=== PATIENT | male | born 1950 | race Caucasian/White ===

== ENCOUNTER 2017-11-22 23:47 | Emergency (ER) | payer BC ==
--- NOTE | 2017-11-23 00:21 | EDM.PDOC ---
ED HPI GENERAL MEDICAL PROBLEM - General Chief Complaint: ENT Problem Stated Complaint: TOOTH PAIN Time Seen by Provider: 11/23/17 00:19 Source of Information: Reports: Patient History Limitations: Reports: No Limitations - History of Present Illness INITIAL COMMENTS - FREE TEXT/NARRATIVE: 67-year-old male presents to the ED for evaluation of dental pain. Patient states that he's been suffering with severe pain from right lower canine tooth for the last 4 days. He just got home from the [place]. States she's been using clothes Tylenol for pain relief without much relief. Patient Cannot Take NSAIDs As He Said Previous Subdural Hemorrhage Spontaneously Believed to Be Due To Aspirin Use. Pain Is Constant and Throbbing in Interfering with His Ability to Sleep. No Fever or Chills. Onset: Gradual Onset Date: 11/19/17 Duration: Day(s): Location: Reports: Face (4 days dental pain right lower canine tooth.) Quality: Reports: Ache, Throbbing Severity: Severe (Current pain 9 out of 10) Improves with: Reports: Medication (Close and Tylenol have been helping somewhat ) Worsens with: Reports: None Context: Denies: Activity, Exercise, Lifting, Sick Contact, Trauma, Other Associated Symptoms: Reports: Headaches, Malaise. Denies: No Other Symptoms, Confusion, Chest Pain, Cough, cough w sputum, Diaphoresis, Fever/Chills, Loss of Appetite (Gets a lot of headaches.), Nausea/Vomiting, Rash, Seizure, Shortness of Breath, Syncope, Weakness (Not sleeping the last 2 nights) Treatments BACCARAT MANAGER: Reports: Acetaminophen, Other (see below) Right Tooth/Teeth Pain Score (Numeric/FACES): 8 - Related Data Allergies Allergy/AdvReac Type Severity Reaction Status Date / Time No Known Allergies Allergy Verified 11/23/17 00:14 Home Meds: Home Meds Amoxicillin/Potassium Clav [Augmentin 500-125 Tablet] 1 each PO BID #16 tablet 11/23/17 [Rx] Carvedilol 6.25 mg PO DAILY 11/23/17 [History] Lisinopril 10 mg PO DAILY 11/23/17 [History] amLODIPine Besylate [Amlodipine Besylate] 10 mg PO DAILY 11/23/17 [History] Past Medical History Cardiovascular History: Reports: Hypertension (Hypertension for which has been controlled for the most part with medications) Genitourinary History: Reports: BPH, Other (See Below) (Nocturia usually 3) Musculoskeletal History: Reports: Osteoarthritis (Involving his neck low back knees and hips at times) Neurological History: Reports: Other (See Below) (Developed a spontaneous subdural hematoma requiring emergency surgery in [facility]. At the time he was taking high-dose aspirin tablets which were [id number] for headache relief. Each tablet contained 800 mg of aspirin and he is taking 2 at a time. They also contain a good deal of caffeine. 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 Denies: Fever, Chills HEENT: Reports: Dental Pain (See history of present illness), Hearing Loss ( Bilaterally with severe tinnitus.). Denies: Ear Pain, Eye Discharge, Glasses, Nosebleed, Nose Pain, Rhinitis, Sinus Problem, Throat Pain, Throat Swelling Respiratory: Reports: No Symptoms Cardiovascular: Reports: Blood Pressure Problem (Usually well-controlled with medication although at time of presentation was quite high tonight at 190/97. This is felt primarily to be due to pain and anxiety) Endocrine: Reports: Fatigue GI/Abdominal: Reports: No Symptoms : Reports: Frequency, Other Musculoskeletal: Reports: Neck Pain ( sets lower back at times), Joint Pain ( Nocturia usually 3) Skin: Reports: No Symptoms Neurological: Reports: Headache Psychiatric: Reports: No Symptoms Hematologic/Lymphatic: Reports: No Symptoms Immunologic: Reports: No Symptoms ED EXAM, ENT - Physical Exam Exam: See Below Exam Limited By: Other (Prefers to keep his Over top of his eyes as the light is bothering his eyes.) General Appearance: Alert, WD/WN, Mild Distress Eye Exam: Bilateral Eye: Normal Inspection Ears: Normal TMs Mouth/Throat: Dental Pain (Pain appears to be coming from a DK 8 right lower canine tooth. He states she's had dental work done on this past. It appears that is been pared down in preparation for a crown which she states he never got. The surrounding gingiva is swollen and erythematous without abscess it is very tender to touch.) Head: Atraumatic, Normocephalic Neck: Normal Inspection, Supple, Non-Tender, Full Range of Motion. No: Lymphadenopathy (L), Lymphadenopathy (R) Respiratory/Chest: No Respiratory Distress, Lungs Clear, Normal Breath Sounds, No Accessory Muscle Use Cardiovascular: Normal Peripheral Pulses, Regular Rate, Rhythm, No Edema, No Gallop, No Murmur, No Rub Course - Vital Signs Last Recorded V/S: Last Vital Signs Temp 36.3 C 11/23/17 00:11 Pulse 61 11/23/17 00:11 Resp 16 11/23/17 00:11 BP 190/97 H 11/23/17 00:11 Pulse Ox 100 11/23/17 00:11 - Orders/Labs/Meds Meds: Medications Discontinued Medications Generic Name Dose Route Start Last Admin Trade Name Freq PRN Reason Stop Dose Admin Amoxicillin/Clavulanate Potassium 1 tab 11/23/17 00:58 11/23/17 01:18 Augmentin 500 Mg\125 Mg PO 11/23/17 00:59 1 tab ONETIME ONE Administration Meperidine HCl 50 mg 11/23/17 00:58 11/23/17 01:12 Demerol IM 11/23/17 00:59 Not Given ONETIME ONE Meperidine HCl 50 mg 11/23/17 01:09 11/23/17 01:18 Meperidine IM 11/23/17 01:10 50 mg ONETIME ONE Administration Promethazine HCl 12.5 mg 11/23/17 00:58 11/23/17 01:18 Phenergan IM 11/23/17 00:59 12.5 mg ONETIME ONE Administration - Radiology Interpretation Free Text/Narrative:: 67-year-old male presents to the ED with severe dental pain right lower canine tooth which is been bothering him for the last 4 days. He states the risperidone and by dentist in the past and is never had any problems up until the last 4 days. Clinically he has a dental abscess at the root of this tooth. He taken a half a Percocet tablet at home as he is somewhat very sensitive to medications. He got no relief with this. Decision made therefore to give him Demerol 50 mg IM with 12.5 mg of Phenergan IM.. Initial dose of Augmentin 500 mg was given in the ED as well. He has enough to Percocet tablets to utilize at home as needed. He is advised not to take Motrin due to previous spontaneous subdural hemorrhage from aspirin use. He will hopefully seek dentist tomorrow to have the tooth removed. Wrote prescription written for amoxicillin 500 mg twice a day for the next 8 days. Departure - Departure Time of Disposition: 01:20 Disposition: Home, Self-Care 01 Condition: Fair Clinical Impression: Dental abscess - Discharge Information Prescriptions: Amoxicillin/Potassium Clav [Augmentin 500-125 Tablet] 1 each PO BID #16 tablet Instructions: Dental Abscess, [id number] Referrals: Ashley Wilkinson MD [Primary Care Provider] - Forms: ED Department Discharge Additional Instructions: Evaluation in the emergency him today in regards to increasing dental pain from left lower canine tooth which is badly decayed. Suspect dental abscess at the root of the tooth. Treatment is antibiotic Augmentin 500 mg twice daily for the next 8 days to clear up infection. First tablet will be provided to the emergency department tonight. You're given an IM injection of Demerol 50 mg with Phenergan 12.5 mg to alleviate pain. Of note this will make you sleepy and hopefully sleep the rest of the night with control of your pain. The pain returns it's okay to use a full tablet of Percocet. Most patients take one or 2 every 4-6 hours for pain control until the antibiotic begins to work which is usually 2 days. Of course follow-up with dentist as soon as able to have the tooth removed which will solve the problem.
[2017-11-23] MEDS ORDERED: Promethazine 25 MG/ML SDV IM ONE (00:58)
[2017-11-23] MEDS ORDERED: Meperidine PF 50 MG/ML Syringe IM ONE (00:58)
[2017-11-23] MEDS ORDERED: Amoxicillin/Clavulanate K 500-125 MG Tab PO ONE (00:58)
[2017-11-23] MEDS ORDERED: Meperidine 50 MG/ML Vial IM ONE (01:09)
== END 2017-11-23 01:22 | disposition home or self-care (01) ==
LOC: JD.ED 23:47
DX: K04.7 Periapical abscess without sinus (principal); I10 Essential (primary) hypertension; M19.90 Unspecified osteoarthritis, unspecified site; Z79.899 Other long term (current) drug therapy
CPT/HCPCS: 96372; 99283; A9270; J2175; J2550

== ENCOUNTER 2018-01-24 13:54 | Inpatient (IN) | payer BC ==
--- NOTE | 2018-01-24 14:07 | EDM.PDOC ---
ED HPI GENERAL MEDICAL PROBLEM - General Chief Complaint: Neurological Problem Stated Complaint: COUGHING DIZZY Time Seen by Provider: 01/24/18 13:57 Source of Information: Reports: Patient History Limitations: Reports: No Limitations - History of Present Illness INITIAL COMMENTS - FREE TEXT/NARRATIVE: 67-year-old male presents the ED with sudden onset of severe vertigo associated with nausea and vomiting within the last hour. He was in [employer] grocery shopping with his when symptoms developed. He had a headache this morning when he woke up he states is more like a mild tension headache. He did go out and mow the grass. States took 2 Tylenol this morning for the headache relief and it seemed to help. He has chronic tinnitus particular in his left ear. Can' t report that is any worse than normal. He is losing his hearing in his left ear. Presents the ED after vomiting 3 both breakfast and dinner came back up without blood. This is associated with severe vertigo. At this time is no worse than it was this morning. He appreciated some neck stiffness this morning when he awoke. He has a history of previous spontaneous subdural hematoma. Currently on no blood thinners. He said mild vertigo in the past but never to this severity. His have chronic hypertension. Onset: Today Onset Date: 01/24/18 Onset Time: 13:00 Duration: Minutes: Location: Reports: Other (Spontaneous nausea vomiting and vertigo. Needed help to walk.) Quality: Reports: Other Severity: Severe (Severe vertigo) Improves with: Reports: Rest (Still has symptoms of mild spinning even at rest.) Worsens with: Reports: Movement Context: Denies: Activity, Exercise, Lifting, Sick Contact, Trauma, Other Associated Symptoms: Reports: Diaphoresis, Malaise, Nausea/Vomiting ( Intractable since onset of vertigo an hour and a half ago). 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: Reports: Acetaminophen (Took 2 tablets of acetaminophen this morning for headache relief.) - Related Data Allergies Allergy/AdvReac Type Severity Reaction Status Date / Time No Known Allergies Allergy Verified 11/23/17 00:14 Home Meds: Home Meds Carvedilol 6.25 mg PO DAILY 11/23/17 [History] Lisinopril 40 mg PO DAILY 11/23/17 [History] amLODIPine Besylate [Amlodipine Besylate] 10 mg PO DAILY 11/23/17 [History] Acetaminophen [Tylenol] 650 mg PO ASDIRECTED 01/24/18 [History] Cholecalciferol (Vitamin D3) [Vitamin D3] 1,000 unit PO DAILY 01/24/18 [History] Magnesium 250 mg PO DAILY 01/24/18 [History] Melatonin 3 mg PO BEDTIME 01/24/18 [History] Multivit-Min/FA/Lycopene/Lut [Centrum Silver Tablet] 1 tab PO DAILY 01/24/18 [ History] Past Medical History Cardiovascular History: Reports: Hypertension (Hypertension for which has been controlled for the most part with medications) Genitourinary History: Reports: BPH, Other (See Below) (Nocturia usually 3) Musculoskeletal History: Reports: Osteoarthritis (Involving his neck low back knees and hips at times) Neurological History: Reports: Other (See Below) (Developed a spontaneous subdural hematoma requiring emergency surgery in [facility]. At the time he was taking high-dose aspirin tablets which were [id number] for headache relief. Each tablet contained 800 mg of aspirin and he is taking 2 at a time. They also contain a good deal of caffeine. 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 Denies: Fever, Chills HEENT: Reports: Glasses, Hearing Loss, Vertigo (With tinnitus particularly left ear.) Respiratory: Reports: Shortness of Breath. Denies: Wheezing, Pleuritic Chest Pain (On exertion), Cough, Sputum Cardiovascular: Reports: Blood Pressure Problem, Dyspnea on Exertion. Denies: Chest Pain, Claudication, Edema, Lightheadedness (Usually well-controlled with medication), Orthopnea Endocrine: Reports: No Symptoms GI/Abdominal: Reports: Nausea, Vomiting : Reports: Frequency, Other Musculoskeletal: Reports: Back Pain (Nocturia 3), Joint Pain Skin: Reports: Diaphoresis (Presents severely diaphoretic clothing is soaked) Neurological: Reports: Dizziness, Difficulty Walking (Severe vertigo. Required help with walking with his . Use the shopping cart to get out of [employer] to help maintain his balance.), Gait Disturbance. Denies: Numbness, Pre- Existing Deficit, Seizure, Syncope, Tingling Psychiatric: Reports: No Symptoms Hematologic/Lymphatic: Reports: No Symptoms (Sudden onset with a vertical) Immunologic: Reports: No Symptoms ED EXAM, DIZZINESS - Physical Exam Exam: See Below Exam Limited By: No Limitations General Appearance: Alert, Moderate Distress (Intermittent nausea and vomiting.) Eye Exam: Left Eye: Nystagmus (Severe rotational lateral nystagmus on left lateral gaze.), Bilateral Eye: PERRL Nystagmus: worsens with head to R, reproducible, constant Ears: Normal TMs (There is no wax against his eardrums.) Throat/Mouth: Normal Inspection, Normal Lips, Normal Teeth Head Exam: Atraumatic, Normocephalic Neck: Normal Inspection, Supple, Non-Tender, Full Range of Motion. No: Carotid Bruit, Lymphadenopathy (L), Lymphadenopathy (R) Respiratory/Chest: No Respiratory Distress, Lungs Clear, Normal Breath Sounds, Decreased Breath Sounds Cardiovascular: Regular Rate, Rhythm, No Edema, No Gallop, No Murmur, No Rub GI/Abdominal: Normal Bowel Sounds, Soft, Non-Tender, No Organomegaly, No Abnormal Bruit, No Mass, Pelvis Stable (Mildly obese), Other Neurological: Alert, Normal Mood/Affect, Normal Dorsiflexion, CN II-XII Intact, Normal Plantar Flexion, No Motor/Sensory Deficits, Oriented x 3, Other ( Babinski is downgoing. No pronator drift. Rapid alternating movements normal). No: Normal Gait, Normal Reflexes, Abnormal Finger to Nose DTR: 0: Achilles (R), Achilles (L), 1+: Patella (R), Patella (L) Extremities: Normal Inspection, Normal Range of Motion, Non-Tender, No Pedal Edema Psychiatric: Normal Affect Skin Exam: Warm, Cool (Clothing is soaked. Cool and clammy and clammy), Diaphoretic Course - Vital Signs Last Recorded V/S: Last Vital Signs Temp 35.6 C 01/24/18 13:57 Pulse 85 01/24/18 13:57 Resp 14 01/24/18 13:57 BP 165/107 H 01/24/18 13:57 Pulse Ox 97 01/24/18 13:57 - Orders/Labs/Meds Orders: Active Orders 24 hr Category Date Time Status EKG Documentation Completion [RC] STAT Care 01/24/18 16:27 Active Chest 1V Frontal [CR] Stat Exams 01/24/18 16:28 Taken Head wo Cont [CT] Stat Exams 01/24/18 14:07 Taken Lactated Ringers [Ringers, Lactated] 1,000 ml Med 01/24/18 17:00 Active IV ASDIRECTED Medication Orders Lactated Ringer's (Ringers, Lactated) 1,000 mls @ 150 mls/hr IV ASDIRECTED THOMAS Last Admin: 01/24/18 17:16 Dose: 150 mls/hr Labs: Laboratory Tests 01/24/18 01/24/18 01/24/18 Range/Units 14:00 14:00 14:00 WBC 8.77 (4.23-9.07) K/mm3 RBC 5.34 (4.63-6.08) M/mm3 Hgb 16.1 (13.7-17.5) gm/L Hct 46.1 (40.1-51.0) % MCV 86.3 (79.0-92.2) fl MCH 30.1 (25.7-32.2) pg MCHC 34.9 (32.2-35.5) g/dl RDW Std Deviation 42.7 (35.1-43.9) fL Plt Count 270 (163-337) K/mm3 MPV 9.2 L (9.4-12.3) fl Neutrophils % (Manual) 45 (40-60) % Band Neutrophils % 0 (0-10) % Lymphocytes % (Manual) 44 H (20-40) % Atypical Lymphs % 0 % Monocytes % (Manual) 5 (2-10) % Eosinophils % (Manual) 4 (0.8-7.0) % Basophils % (Manual) 2 H (0.2-1.2) Platelet Estimate Adequate Plt Morphology Comment Normal RBC Morph Comment Normal PT 10.2 (9.5-12.1) SECONDS INR 0.93 APTT 24 (24-31) SECONDS Sodium 142 (136-145) mEq/L Potassium 3.0 L (3.5-5.1) mEq/L Chloride 105 (98-107) mEq/L Carbon Dioxide 23 (21-32) mEq/L Anion Gap 17.0 H (5-15) BUN 18 (7-18) mg/dL Creatinine 1.7 H (0.7-1.3) mg/dL Est Cr Clr Drug Dosing TNP Estimated GFR (MDRD) 40 (>60) mL/min BUN/Creatinine Ratio 10.6 L (14-18) Glucose 120 H (80-115) mg/dL Calcium 9.6 (8.5-10.1) mg/dL Magnesium 2.2 (1.8-2.4) mg/dl Total Bilirubin 0.5 (0.2-1.0) mg/dL AST 15 (15-37) U/L ALT 33 (16-63) U/L Alkaline Phosphatase 72 (46-116) U/L Total Protein 8.1 (6.4-8.2) g/dl Albumin 4.0 (3.4-5.0) g/dl Globulin 4.1 gm/dL Albumin/Globulin Ratio 1.0 (1-2) Ethyl Alcohol (0.00) gm% //18 Range/Units 14:00 WBC (4.23-9.07) K/mm3 RBC (4.63-6.08) M/mm3 Hgb (13.7-17.5) gm/L Hct (40.1-51.0) % MCV (79.0-92.2) fl MCH (25.7-32.2) pg MCHC (32.2-35.5) g/dl RDW Std Deviation (35.1-43.9) fL Plt Count (163-337) K/mm3 MPV (9.4-12.3) fl Neutrophils % (Manual) (40-60) % Band Neutrophils % (0-10) % Lymphocytes % (Manual) (20-40) % Atypical Lymphs % % Monocytes % (Manual) (2-10) % Eosinophils % (Manual) (0.8-7.0) % Basophils % (Manual) (0.2-1.2) Platelet Estimate Plt Morphology Comment RBC Morph Comment PT (9.5-12.1) SECONDS INR APTT (24-31) SECONDS Sodium (136-145) mEq/L Potassium (3.5-5.1) mEq/L Chloride (98-107) mEq/L Carbon Dioxide (21-32) mEq/L Anion Gap (5-15) BUN (7-18) mg/dL Creatinine (0.7-1.3) mg/dL Est Cr Clr Drug Dosing Estimated GFR (MDRD) (>60) mL/min BUN/Creatinine Ratio (14-18) Glucose (80-115) mg/dL Calcium (8.5-10.1) mg/dL Magnesium (1.8-2.4) mg/dl Total Bilirubin (0.2-1.0) mg/dL AST (15-37) U/L ALT (16-63) U/L Alkaline Phosphatase (46-116) U/L Total Protein (6.4-8.2) g/dl Albumin (3.4-5.0) g/dl Globulin gm/dL Albumin/Globulin Ratio (1-2) Ethyl Alcohol 0.00 (0.00) gm% Meds: Medications Generic Name Dose Route Start Last Admin Trade Name Freq PRN Reason Stop Dose Admin Lactated Ringer's 1,000 mls @ 150 mls/hr 01/24/18 17:00 01/24/18 17:16 Ringers, Lactated IV 150 mls/hr ASDIRECTED THOMAS Administration Discontinued Medications Generic Name Dose Route Start Last Admin Trade Name Freq PRN Reason Stop Dose Admin Hydralazine HCl 10 mg 01/24/18 16:15 01/24/18 16:21 Apresoline IVPUSH 01/24/18 16:16 10 mg ONETIME ONE Administration Hydralazine HCl 10 mg 01/24/18 17:25 Apresoline IVPUSH 01/24/18 17:26 ONETIME ONE Lorazepam 1 mg 01/24/18 14:08 01/24/18 14:17 Ativan IVPUSH 01/24/18 14:09 1 mg ONETIME ONE Administration Meclizine HCl 25 mg 01/24/18 15:03 01/24/18 15:18 Antivert PO 01/24/18 15:04 25 mg ONETIME ONE Administration Metoclopramide HCl 10 mg 01/24/18 14:08 01/24/18 14:16 Reglan IVPUSH 01/24/18 14:09 10 mg ONETIME ONE Administration Potassium Chloride 40 meq 01/24/18 15:47 01/24/18 15:58 Klor-Con M20 PO 01/24/18 15:48 40 meq ONETIME ONE Administration - Radiology Interpretation Free Text/Narrative:: 67-year-old male presents to the ED with acute onset of severe vertigo so she with recurrent nausea and vomiting within the last hour and a half. Symptoms started acutely when he was in [employer] grocery store shopping with his . Sudden onset of severe vertigo that made him leave the store. Use the shopping cart to help him walk to the car. He had driven to the supermarket but his had to drive en route to the hospital. She had stop once for him to vomit. To twice since he came into the hospital bilious emesis without blood. He has severe rotational nystagmus on looking to the left lateral gaze. Associated headache earlier this morning with some associated pressure the base of his neck. History of previous subdural hematoma which cause was never identified 4. Has known hypertension. His blood pressure at this time is elevated 176 /100. Neuro exam is basically normal. He will have CT head at done at any rate to rule out a cerebellar hemorrhage. Plan is Reglan 10 mg IV with 1 mg of Ativan IV to arrest nausea vomiting and bring vertigo under control. Blood pressure will be monitored irrigated remains elevated it will be treated. Routine labs ordered. - Re-Assessments/Exams Free Text/Narrative Re-Assessment/Exam: 01/24/18 15:03 CT scan of the head reveals no intracranial bleeding or mass effect. It does show moderate degenerative changes particularly within small vessels in both basal ganglias and mild to moderate dilatation of the lateral ventricles. Sulci are still well visualized with no no signs of intracranial hypertension. There is evidence of previous right-sided craniotomy. 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 No subdural hematoma or cerebellar hematoma appreciated. I question the patient still feels vertiginous on movement of his head. Will monitor for the next half hour or more before retrying get him up to walk. 01/24/18 15:43 Labs reveal a total white count of 8.77 with a 45% neutrophil count and no bands reported. Hemoglobin is 16.1 with hematocrit of 46.1 suggesting mild hemoconcentration. Platelets are normal at 270,000. PT is 10.2 with an INR of 0.93. PTT is 24. Sodium is 142 potassium is low at 3.0. Chloride is 105 with a bicarbonate of 23. And a gap is mildly elevated at 17.0. BUN is 18 with a creatinine of 1.7. Estimated GFR is 40 i.e. stage III chronic kidney disease. Glucose is 120. Calcium is 9.6 magnesium normal at 2.2. Liver function normal. Therefore the only finding is hypokalemia. Will give 40 mg of potassium by mouth. Suspicion of alcohol use to cause current changes with mild metabolic acidosis and hypokalemia. Will have the girls get him up and will see how he does ambulating. 01/24/18 16:16 Attempt to get him up walking failed miserably. He'll admitted to the side of the bed before he felt so terribly vertiginous that he had a lay back down. His blood pressure remains elevated diastolically anywhere from 100 and now walk to 118. Therefore going to give him Apresoline 10 mg IV. He will require admission to the hospital and I will speak to Dr. Merino current hospitalist at this time. 01/24/18 16:23 spoke with early childhood education coordinator hospitalist Dr. Merino and she will see the patient in the ED. 01/24/18 16:57 Dr. Merino is seen the patient in the ED and will admit him to the hospital. Current blood pressure is still 175/104. Due to his dehydrated state she will be started on Ringer's lactate at 150 mils per hour. 01/24/18 17:26 He meets inpatient criteria and therefore will be admitted to the hospital med surgery on telemetry. He started vomiting again and therefore was received Zofran 4 mg IV and Benadryl 25 mg IV to prevent a dystonic reaction as Reglan was given 2 hours ago. His blood pressure still is 105 diastolically. He will be given a second dose of hydralazine 10 mg IV. He will also receive potassium intravenously 10 mEq over one hour. Departure - Departure Time of Disposition: 17:28 Disposition: Admitted As Inpatient 66 Condition: Fair Clinical Impression: Acute onset of severe vertigo, Uncontrolled hypertension, Hypokalemia - Discharge Information - My Orders Last 24 Hours: My Active Orders 01/24/18 14:07 Head wo Cont [CT] Stat 01/24/18 16:27 EKG Documentation Completion [RC] STAT 01/24/18 16:28 Chest 1V Frontal [CR] Stat 01/24/18 17:00 Lactated Ringers [Ringers, Lactated] 1,000 ml IV ASDIRECTED - Assessment/Plan Last 24 Hours: My Active Orders 01/24/18 14:07 Head wo Cont [CT] Stat 01/24/18 16:27 EKG Documentation Completion [RC] STAT 01/24/18 16:28 Chest 1V Frontal [CR] Stat 01/24/18 17:00 Lactated Ringers [Ringers, Lactated] 1,000 ml IV ASDIRECTED
[2018-01-24] MEDS ORDERED: LORazepam 2 MG/ML SDV IVPUSH ONE (14:08)
[2018-01-24] MEDS ORDERED: Metoclopramide 10 MG/2 ML SDV IVPUSH ONE (14:08)
[2018-01-24] MEDS ORDERED: Meclizine 12.5 MG Tab PO ONE (15:03)
[2018-01-24] MEDS ORDERED: Potassium Chloride 20 MEQ Tab.ER PO ONE (15:47)
[2018-01-24] MEDS ORDERED: hydrALAZINE 20 MG/ML SDV IVPUSH ONE ×2 (16:15→17:25)
[2018-01-24] MEDS ORDERED: Lactated Ringers 1,000 ML IV SCH (17:00)
[2018-01-24] MEDS ORDERED: Ondansetron 4 MG/2 ML SDV IVPUSH ONE (17:25)
[2018-01-24] MEDS ORDERED: diphenhydrAMINE 50 MG/ML SDV IVPUSH ONE (17:26)
[2018-01-24] MEDS ORDERED: Potassium Chloride 10 MEQ in Premix Bag 1 BAG IV ONE (17:27)
--- NOTE | 2018-01-24 18:23 | PCM.HP ---
H&P History of Present Illness - General Date of Service: 01/24/18 Admit Problem/Dx: Admission Diagnosis/Problem Admission Diagnosis/Problem Vertigo Source of Information: Patient, Family, Provider History Limitations: Reports: No Limitations - History of Present Illness Initial Comments - Free Text/Narative: 67 year old male with prior history of subdural hematoma presents with dizziness which abruptly occurred while shopping. This was associated with difficulty walking requiring the use of a shopping cart while at the store. He denied CP, SOB, syncopal/presyncopal episode. He mentioned a headache which happened earlier in the day which had resolved. The patient experienced nausea/ vomiting as well, unrelated to the headache. There was no change in vision. The patient had a CT of the head which showed chronic left frontal infarct, no mass or midline shift. Changes secondary to a right sided craniotomy were noted. The patient will be admitted to [place] telemetry and is a full code. Onset of Symptoms: Reports: Sudden Symptom Onset Date: 01/24/18 Duration of Symptoms: Reports: Hour(s):, Getting Worse Location: Reports: Generalized Quality: Reports: Same as Previous Episode Severity: Moderate Improves with: Reports: Medication Worsens with: Reports: Movement Associated Symptoms: Reports: Cough, Nausea/Vomiting, Weakness - Related Data Allergies/Adverse Reactions: Allergies Allergy/AdvReac Type Severity Reaction Status Date / Time No Known Allergies Allergy Verified 11/23/17 00:14 Home Medications: Home Meds Carvedilol 6.25 mg PO DAILY 11/23/17 [History] Lisinopril 40 mg PO DAILY 11/23/17 [History] amLODIPine Besylate [Amlodipine Besylate] 10 mg PO DAILY 11/23/17 [History] Acetaminophen [Tylenol] 650 mg PO Q6HR PRN 01/24/18 [History] Cholecalciferol (Vitamin D3) [Vitamin D3] 1,000 unit PO DAILY 01/24/18 [History] Magnesium 250 mg PO DAILY 01/24/18 [History] Melatonin 3 mg PO BEDTIME PRN 01/24/18 [History] Multivit-Min/FA/Lycopene/Lut [Centrum Silver Tablet] 1 tab PO DAILY 01/24/18 [ History] Past Medical History HEENT History: Reports: Cataract Cardiovascular History: Reports: Hypertension (Hypertension for which has been controlled for the most part with medications) Other Respiratory History: SOB a long time ago Gastrointestinal History: Reports: GERD Genitourinary History: Reports: BPH, Other (See Below) (Nocturia usually 3) Musculoskeletal History: Reports: Osteoarthritis (Involving his neck low back knees and hips at times) Neurological History: Reports: Other (See Below) (Developed a spontaneous subdural hematoma requiring emergency surgery in [facility]. At the time he was taking high-dose aspirin tablets which were [id number] for headache relief. Each tablet contained 800 mg of aspirin and he is taking 2 at a time. They also contain a good deal of caffeine. At any rate he required petar hole and drainage of the subdural hematoma and is recovered completely from initial left-sided deficit primarily affecting his arm and hand.) - Infectious Disease History Infectious Disease History: Reports: Chicken Pox, Measles, Mumps - Past Surgical History HEENT Surgical History: Reports: Cataract Surgery Cardiovascular Surgical History: Reports: None GI Surgical History: Reports: None Social & Family History - Family History Family Medical History: Noncontributory - Tobacco Use Smoking Status *Q: Never Smoker Second Hand Smoke Exposure: No - Caffeine Use Caffeine Use: Reports: Coffee Other Caffeine Use: cappucino - Recreational Drug Use Recreational Drug Use: No - Living Situation & Occupation Living situation: Reports: 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) H&P Review of Systems - Review of Systems: Review Of Systems: See Below General: Reports: Weakness HEENT: Reports: No Symptoms Pulmonary: Reports: Cough Cardiovascular: Reports: Lightheadedness Gastrointestinal: Reports: Nausea, Vomiting Musculoskeletal: Reports: No Symptoms Skin: Reports: No Symptoms Psychiatric: Reports: No Symptoms Neurological: Reports: Headache Hematologic/Lymphatic: Reports: No Symptoms Immunologic: Reports: No Symptoms Exam - Exam Exam: See Below - Vital Signs Vital Signs: Last Vital Signs Temp 35.6 C 01/24/18 13:57 Pulse 91 01/24/18 17:30 Resp 18 01/24/18 17:30 BP 159/103 H 01/24/18 17:30 Pulse Ox 95 01/24/18 17:30 Weight: 109.633 kg - Exam Quality Assessment: DVT Prophylaxis General: Alert, Oriented, Cooperative, Mild Distress HEENT: Conjunctiva Clear, Nares Patent, Normal Nasal Septum, Pupils Equal, Pupils Reactive, PERRLA Neck: Supple Lungs: Clear to Auscultation, Normal Respiratory Effort Cardiovascular: Regular Rate, Regular Rhythm GI/Abdominal Exam: Normal Bowel Sounds, Soft, Non-Tender, No Organomegaly, No Distention (Male) Exam: Deferred Rectal (Males) Exam: Deferred Back Exam: Normal Inspection Extremities: Normal Inspection, No Pedal Edema, Slow Capillary Refill Skin: Warm Neurological: Cranial Nerves Intact Neuro Extensive - Mental Status: Alert, Oriented x3, Normal Mood/Affect, Normal Cognition, Memory Intact Neuro Extensive - Motor, Sensory, Reflexes: CN II-XII Intact, Normal Gait - Patient Data Lab Results Last 24 hrs: Laboratory Results - last 24 hr 01/24/18 01/24/18 01/24/18 Range/Units 14:00 14:00 14:00 WBC 8.77 (4.23-9.07) K/mm3 RBC 5.34 (4.63-6.08) M/mm3 Hgb 16.1 (13.7-17.5) gm/L Hct 46.1 (40.1-51.0) % MCV 86.3 (79.0-92.2) fl MCH 30.1 (25.7-32.2) pg MCHC 34.9 (32.2-35.5) g/dl RDW Std Deviation 42.7 (35.1-43.9) fL Plt Count 270 (163-337) K/mm3 MPV 9.2 L (9.4-12.3) fl Neutrophils % (Manual) 45 (40-60) % Band Neutrophils % 0 (0-10) % Lymphocytes % (Manual) 44 H (20-40) % Atypical Lymphs % 0 % Monocytes % (Manual) 5 (2-10) % Eosinophils % (Manual) 4 (0.8-7.0) % Basophils % (Manual) 2 H (0.2-1.2) Platelet Estimate Adequate Plt Morphology Comment Normal RBC Morph Comment Normal PT 10.2 (9.5-12.1) SECONDS INR 0.93 APTT 24 (24-31) SECONDS Sodium 142 (136-145) mEq/L Potassium 3.0 L (3.5-5.1) mEq/L Chloride 105 (98-107) mEq/L Carbon Dioxide 23 (21-32) mEq/L Anion Gap 17.0 H (5-15) BUN 18 (7-18) mg/dL Creatinine 1.7 H (0.7-1.3) mg/dL Est Cr Clr Drug Dosing TNP Estimated GFR (MDRD) 40 (>60) mL/min BUN/Creatinine Ratio 10.6 L (14-18) Glucose 120 H (80-115) mg/dL Calcium 9.6 (8.5-10.1) mg/dL Magnesium 2.2 (1.8-2.4) mg/dl Total Bilirubin 0.5 (0.2-1.0) mg/dL AST 15 (15-37) U/L ALT 33 (16-63) U/L Alkaline Phosphatase 72 (46-116) U/L Total Protein 8.1 (6.4-8.2) g/dl Albumin 4.0 (3.4-5.0) g/dl Globulin 4.1 gm/dL Albumin/Globulin Ratio 1.0 (1-2) Ethyl Alcohol (0.00) gm% 01/24/18 Range/Units 14:00 WBC (4.23-9.07) K/mm3 RBC (4.63-6.08) M/mm3 Hgb (13.7-17.5) gm/L Hct (40.1-51.0) % MCV (79.0-92.2) fl MCH (25.7-32.2) pg MCHC (32.2-35.5) g/dl RDW Std Deviation (35.1-43.9) fL Plt Count (163-337) K/mm3 MPV (9.4-12.3) fl Neutrophils % (Manual) (40-60) % Band Neutrophils % (0-10) % Lymphocytes % (Manual) (20-40) % Atypical Lymphs % % Monocytes % (Manual) (2-10) % Eosinophils % (Manual) (0.8-7.0) % Basophils % (Manual) (0.2-1.2) Platelet Estimate Plt Morphology Comment RBC Morph Comment PT (9.5-12.1) SECONDS INR APTT (24-31) SECONDS Sodium (136-145) mEq/L Potassium (3.5-5.1) mEq/L Chloride (98-107) mEq/L Carbon Dioxide (21-32) mEq/L Anion Gap (5-15) BUN (7-18) mg/dL Creatinine (0.7-1.3) mg/dL Est Cr Clr Drug Dosing Estimated GFR (MDRD) (>60) mL/min BUN/Creatinine Ratio (14-18) Glucose (80-115) mg/dL Calcium (8.5-10.1) mg/dL Magnesium (1.8-2.4) mg/dl Total Bilirubin (0.2-1.0) mg/dL AST (15-37) U/L ALT (16-63) U/L Alkaline Phosphatase (46-116) U/L Total Protein (6.4-8.2) g/dl Albumin (3.4-5.0) g/dl Globulin gm/dL Albumin/Globulin Ratio (1-2) Ethyl Alcohol 0.00 (0.00) gm% Result Diagrams: 01/24/18 14:00 01/24/18 14:00 - Problem List (1) Acute onset of severe vertigo SNOMED Code(s): 550497352 ICD Code: R42 - DIZZINESS AND GIDDINESS Status: Acute Current Visit: Yes (2) Hypokalemia SNOMED Code(s): 86384692 ICD Code: E87.6 - HYPOKALEMIA Status: Acute Current Visit: Yes (3) Uncontrolled hypertension SNOMED Code(s): 73629692, 33538301 ICD Code: I10 - ESSENTIAL (PRIMARY) HYPERTENSION Status: Acute Current Visit: Yes Problem List Initiated/Reviewed/Updated: Yes Orders Last 24hrs: Active Orders 24 hr Category Date Time Status Admission Status [Patient Status] [ADT] Routine ADT 01/24/18 16:59 Active Admission Status [Patient Status] [ADT] Routine ADT 01/24/18 17:28 Active EKG Documentation Completion [RC] STAT Care 01/24/18 16:27 Active Chest 1V Frontal [CR] Stat Exams 01/24/18 16:28 Taken Head wo Cont [CT] Stat Exams 01/24/18 14:07 Taken Potassium Chloride [KCl 10 MEQ in Water 100 ML] 10 meq Med 01/24/18 17:27 Active Premix Bag 1 bag IV ONETIME Sodium Chloride 0.45% with KCl [1/2 NS with 20 mEq KCl] Med 01/24/18 18:15 Active 1,000 ml IV ASDIRECTED Medication Orders Potassium Chloride 10 meq/ (Premix) 100 mls @ 100 mls/hr IV ONETIME ONE Stop: 01/24/18 18:26 Potassium Chloride/Sodium Chloride (1/2 Ns With 20 Meq Kcl) 1,000 mls @ 125 mls /hr IV ASDIRECTED THOMAS Assessment/Plan Comment:: Impression: Acute dizziness, query vertigo Hx of left sided hearing loss S/P right sided craniotomy; previous left frontal infarct Hypertension, uncontrolled Acute renal failure w/ CKD, stage III Hypokalemia Mg, unknown Chronic BPH Hx of Subdural Hematoma, s/p [place] hole Plan: Evaluate posterior circulation Neurochecks with VS IVF for dehydration MRA of head/neck Check Lipids; daily labs Resume home meds, hold diuretic; add pm alpha ulices DVT/GI prophylaxis Consult PT/OT/(CM)
[2018-01-24] MEDS ORDERED: Acetaminophen 325 MG Tab PO PRN (18:49)
[2018-01-24] MEDS ORDERED: MELATONIN 3 MG PO PRN (18:49)
[2018-01-24] MEDS ORDERED: hydrALAZINE 20 MG/ML SDV IVPUSH PRN (18:54)
[2018-01-24] MEDS ORDERED: Ondansetron 4 MG/2 ML SDV IVPUSH PRN (19:17)
[2018-01-24] MEDS ORDERED: Temazepam 15 MG Cap PO PRN (19:20)
[2018-01-24] MEDS: Sodium Chloride 0.45% with KCl 1,000 ML IV SCH (20:01)
[2018-01-24] MEDS: amLODIPine 10 MG Tab PO SCH (20:05)
[2018-01-24] MEDS: Potassium Chloride 20 MEQ Tab.ER PO SCH (21:51)
[2018-01-24] MEDS: Metoclopramide 10 MG/2 ML SDV IVPUSH PRN (22:47)
[2018-01-25] MEDS: Potassium Chloride 20 MEQ Tab.ER PO SCH ×3 (06:06→16:23)
[2018-01-25] MEDS: Magnesium Oxide 400 MG Tab PO SCH (08:20)
[2018-01-25] MEDS: Carvedilol 6.25 MG Tab PO SCH (08:20)
[2018-01-25] MEDS: amLODIPine 10 MG Tab PO SCH (08:20)
--- NOTE | 2018-01-25 08:23 | CR ---
Chest: Portable view of the chest was obtained. Comparison: No previous study. Heart size is normal. Tortuous thoracic aorta. Lungs are clear parenchymal change. Bony structures are grossly intact. Impression: 1. Nothing acute is seen on portable chest x-ray. Diagnostic code #2
[2018-01-25] MEDS ORDERED: Gadobenate Dimeglumine 529 MG/ML 20 ML SDV IVPUSH ONE (08:48)
[2018-01-25] MEDS ORDERED: Sodium Chloride 0.9% 10 ML Syringe FLUSH PRN (08:48)
--- NOTE | 2018-01-25 08:54 | CT ---
Head CT Technique: Multiple axial sections through the brain were obtained. Intravenous contrast was not utilized. Comparison: No prior cranial imaging is available. Findings: There is an area of encephalomalacia within the left frontal lobe which appears old. Minimal areas of diminished density seen within periventricular white matter compatible with small vessel ischemic demyelination change. No other abnormal parenchymal densities are seen. No evidence of intracranial hemorrhage. No midline shift or mass effect is seen. Prior right-sided craniotomy is noted. Visualized sinuses are clear. No acute calvarial abnormality is seen. Impression: 1. Small area of encephalomalacia within medial left frontal lobe which is old. 2. Senescent changes noted. 3. Previous right craniotomy. 4. Nothing acute is appreciated on noncontrast head CT study. Diagnostic code #2 I agree with preliminary report from [facility], finalized at 01/24/18, 4:05 PM Central Time
[2018-01-25] MEDS: Sodium Chloride 0.45% with KCl 1,000 ML IV SCH ×2 (10:46→18:50)
--- NOTE | 2018-01-25 11:11 | MR ---
MR angiogram of neck Technique: [id number] MR angiogram study was obtained centered to the carotid bifurcation. Post-gadolinium images were then obtained through the neck. Multiple MIP images were obtained in multiple projections. Findings: Tortuous internal carotid arteries are seen bilaterally with tortuosity which is more prominent on the left side. No focal stenosis is seen within either the right or left internal carotid arteries. Proximal external carotid arteries show no stenosis. Common carotid arteries on both sides show no stenosis. Left vertebral artery is dominant over the right vertebral artery. Impression: 1. Dominant left vertebral artery. Tortuous internal carotid arteries are seen bilaterally. 2. MR angiogram of the neck is otherwise unremarkable. Diagnostic code #2
[2018-01-25] MEDS: Metoclopramide 10 MG/2 ML SDV IVPUSH PRN (11:58)
[2018-01-25] MEDS ORDERED: Scopolamine 1.5 MG Transdermal Patch TOP ONE (13:39)
--- NOTE | 2018-01-25 14:28 | PCM.PN ---
- General Info Date of Service: 01/25/18 Admission Dx/Problem (Free Text): Admission Diagnosis/Problem Admission Diagnosis/Problem Vertigo Subjective Update: In to see Miguel A. He reports his dizziness has improved but he has been having episodes of N/V. He denies diarrhea or abdominal pain. Denies recent travel, bad food exposure, or sick contact exposure. Denies any previous issue with nausea. He does have a history of GERD. He has had imaging with contrast in the past and has not had any issues tolerating contrast prior. He also reports that he has never experienced an episode of dizziness like this before. He does report that he was outside yesterday mowing the lawn but reports he drank at least 32 oz of water while he was mowing. Regarding his long standing HTN, patient reports that he has been adjusting his BP meds for the past year. Per his phone records, he was prescribed amlodipine 10 mg, carvedilol 6.25 mg, and lisinopril 40 mg. He has been cutting all of these in half and reports that the reason he was doing this was because he felt very tired at the original doses. His PCP used to be Dr. Rowley but he estimates his last visit with her was 18 months ago. He has previously seen an MD at the [facility] in [place]. Functional Status: Reports: Pain Controlled, Tolerating Diet, New Symptoms ( Nausea ) - Review of Systems General: Reports: Chills. Denies: Fever, Weakness HEENT: Reports: No Symptoms Pulmonary: Reports: No Symptoms. Denies: Shortness of Breath, Cough Cardiovascular: Reports: No Symptoms. Denies: Chest Pain, Palpitations, Edema, Lightheadedness Gastrointestinal: Reports: Nausea, Vomiting, Other (Denies hemoptysis ). Denies : Abdominal Pain, Constipation, Diarrhea, Hematochezia Genitourinary: Reports: No Symptoms. Denies: Dysuria, Frequency Musculoskeletal: Reports: No Symptoms Skin: Reports: No Symptoms. Denies: Cyanosis, Bruising Neurological: Reports: No Symptoms, Dizziness (improving ), Headache. Denies: Confusion Psychiatric: Reports: No Symptoms. Denies: Confusion, Depression - Patient Data Vitals - Most Recent: Last Vital Signs Temp 98.4 F 01/25/18 11:16 Pulse 74 01/25/18 11:16 Resp 16 01/25/18 11:16 BP 165/93 H 01/25/18 12:00 Pulse Ox 95 01/25/18 11:16 Weight - Most Recent: 238 lb 6 oz I&O - Last 24 Hours: Intake & Output 01/24/18 01/25/18 01/25/18 22:59 06:59 14:59 Intake Total 1304 240 Output Total 1300 Balance 4 240 Lab Results Last 24 Hours: Laboratory Results - last 24 hr 01/24/18 01/24/18 01/24/18 Range/Units 14:00 14:00 14:00 WBC 8.77 (4.23-9.07) K/mm3 RBC 5.34 (4.63-6.08) M/mm3 Hgb 16.1 (13.7-17.5) gm/L Hct 46.1 (40.1-51.0) % MCV 86.3 (79.0-92.2) fl MCH 30.1 (25.7-32.2) pg MCHC 34.9 (32.2-35.5) g/dl RDW Std Deviation 42.7 (35.1-43.9) fL Plt Count 270 (163-337) K/mm3 MPV 9.2 L (9.4-12.3) fl Neut % (Auto) (34.0-67.9) % Lymph % (Auto) (21.8-53.1) % [place] % (Auto) (5.3-12.2) % Eos % (Auto) (0.8-7.0) Baso % (Auto) (0.1-1.2) % Neut # (Auto) (1.78-5.38) K/mm3 Lymph # (Auto) (1.32-3.57) K/mm3 [place] # (Auto) (0.30-0.82) K/mm3 Eos # (Auto) (0.04-0.54) K/mm3 Baso # (Auto) (0.01-0.08) K/mm3 Neutrophils % (Manual) 45 (40-60) % Band Neutrophils % 0 (0-10) % Lymphocytes % (Manual) 44 H (20-40) % Atypical Lymphs % 0 % Monocytes % (Manual) 5 (2-10) % Eosinophils % (Manual) 4 (0.8-7.0) % Basophils % (Manual) 2 H (0.2-1.2) Platelet Estimate Adequate Plt Morphology Comment Normal RBC Morph Comment Normal PT 10.2 (9.5-12.1) SECONDS INR 0.93 APTT 24 (24-31) SECONDS Sodium 142 (136-145) mEq/L Potassium 3.0 L (3.5-5.1) mEq/L Chloride 105 (98-107) mEq/L Carbon Dioxide 23 (21-32) mEq/L Anion Gap 17.0 H (5-15) BUN 18 (7-18) mg/dL Creatinine 1.7 H (0.7-1.3) mg/dL Est Cr Clr Drug Dosing TNP Estimated GFR (MDRD) 40 (>60) mL/min BUN/Creatinine Ratio 10.6 L (14-18) Glucose 120 H (80-115) mg/dL Calcium 9.6 (8.5-10.1) mg/dL Magnesium 2.2 (1.8-2.4) mg/dl Total Bilirubin 0.5 (0.2-1.0) mg/dL AST 15 (15-37) U/L ALT 33 (16-63) U/L Alkaline Phosphatase 72 (46-116) U/L C-Reactive Protein (<1.0) mg/dL Total Protein 8.1 (6.4-8.2) g/dl Albumin 4.0 (3.4-5.0) g/dl Globulin 4.1 gm/dL Albumin/Globulin Ratio 1.0 (1-2) Triglycerides (<150) mg/dL Cholesterol (<200) mg/dL LDL Cholesterol Direct (<100) mg/dL HDL Cholesterol (40-59) mg/dL Urine Color (Yellow) Urine Appearance (Clear) Urine pH (5.0-8.0) Ur Specific [place] (1.005-1.030) Urine Protein (Negative) Urine Glucose (UA) (Negative) Urine Ketones (Negative) Urine Occult Blood (Negative) Urine Nitrite (Negative) Urine Bilirubin (Negative) Urine Urobilinogen (0.2-1.0) Ur Leukocyte Esterase (Negative) Urine RBC (0-5) /hpf Urine WBC (0-5) /hpf Ur Epithelial Cells (0-5) /hpf Amorphous Sediment (NOT SEEN) /hpf Urine Bacteria (FEW) /hpf Urine Mucus (FEW) /hpf Ethyl Alcohol (0.00) gm% 01/24/18 01/25/18 01/25/18 Range/Units 14:00 04:50 06:00 WBC 10.88 H (4.23-9.07) K/mm3 RBC 5.06 (4.63-6.08) M/mm3 Hgb 15.0 (13.7-17.5) gm/L Hct 44.6 (40.1-51.0) % MCV 88.1 (79.0-92.2) fl MCH 29.6 (25.7-32.2) pg MCHC 33.6 (32.2-35.5) g/dl RDW Std Deviation 44.3 H (35.1-43.9) fL Plt Count 241 (163-337) K/mm3 MPV 9.4 (9.4-12.3) fl Neut % (Auto) 79.2 H (34.0-67.9) % Lymph % (Auto) 10.4 L (21.8-53.1) % [place] % (Auto) 9.7 (5.3-12.2) % Eos % (Auto) 0.2 L (0.8-7.0) Baso % (Auto) 0.3 (0.1-1.2) % Neut # (Auto) 8.62 H (1.78-5.38) K/mm3 Lymph # (Auto) 1.13 L (1.32-3.57) K/mm3 [place] # (Auto) 1.06 H (0.30-0.82) K/mm3 Eos # (Auto) 0.02 L (0.04-0.54) K/mm3 Baso # (Auto) 0.03 (0.01-0.08) K/mm3 Neutrophils % (Manual) (40-60) % Band Neutrophils % (0-10) % Lymphocytes % (Manual) (20-40) % Atypical Lymphs % % Monocytes % (Manual) (2-10) % Eosinophils % (Manual) (0.8-7.0) % Basophils % (Manual) (0.2-1.2) Platelet Estimate Plt Morphology Comment RBC Morph Comment PT (9.5-12.1) SECONDS INR APTT (24-31) SECONDS Sodium (136-145) mEq/L Potassium (3.5-5.1) mEq/L Chloride (98-107) mEq/L Carbon Dioxide (21-32) mEq/L Anion Gap (5-15) BUN (7-18) mg/dL Creatinine (0.7-1.3) mg/dL Est Cr Clr Drug Dosing Estimated GFR (MDRD) (>60) mL/min BUN/Creatinine Ratio (14-18) Glucose (80-115) mg/dL Calcium (8.5-10.1) mg/dL Magnesium (1.8-2.4) mg/dl Total Bilirubin (0.2-1.0) mg/dL AST (15-37) U/L ALT (16-63) U/L Alkaline Phosphatase (46-116) U/L C-Reactive Protein (<1.0) mg/dL Total Protein (6.4-8.2) g/dl Albumin (3.4-5.0) g/dl Globulin gm/dL Albumin/Globulin Ratio (1-2) Triglycerides (<150) mg/dL Cholesterol (<200) mg/dL LDL Cholesterol Direct (<100) mg/dL HDL Cholesterol (40-59) mg/dL Urine Color Yellow (Yellow) Urine Appearance Clear (Clear) Urine pH 7.0 (5.0-8.0) Ur Specific [place] 1.020 (1.005-1.030) Urine Protein 1+ H (Negative) Urine Glucose (UA) Negative (Negative) Urine Ketones Negative (Negative) Urine Occult Blood Negative (Negative) Urine Nitrite Negative (Negative) Urine Bilirubin Negative (Negative) Urine Urobilinogen 0.2 (0.2-1.0) Ur Leukocyte Esterase Negative (Negative) Urine RBC 0-5 (0-5) /hpf Urine WBC 0-5 (0-5) /hpf Ur Epithelial Cells Not seen (0-5) /hpf Amorphous Sediment Moderate H (NOT SEEN) /hpf Urine Bacteria Few (FEW) /hpf Urine Mucus Not seen (FEW) /hpf Ethyl Alcohol 0.00 (0.00) gm% 01/25/18 Range/Units 06:00 WBC (4.23-9.07) K/mm3 RBC (4.63-6.08) M/mm3 Hgb (13.7-17.5) gm/L Hct (40.1-51.0) % MCV (79.0-92.2) fl MCH (25.7-32.2) pg MCHC (32.2-35.5) g/dl RDW Std Deviation (35.1-43.9) fL Plt Count (163-337) K/mm3 MPV (9.4-12.3) fl Neut % (Auto) (34.0-67.9) % Lymph % (Auto) (21.8-53.1) % [place] % (Auto) (5.3-12.2) % Eos % (Auto) (0.8-7.0) Baso % (Auto) (0.1-1.2) % Neut # (Auto) (1.78-5.38) K/mm3 Lymph # (Auto) (1.32-3.57) K/mm3 [place] # (Auto) (0.30-0.82) K/mm3 Eos # (Auto) (0.04-0.54) K/mm3 Baso # (Auto) (0.01-0.08) K/mm3 Neutrophils % (Manual) (40-60) % Band Neutrophils % (0-10) % Lymphocytes % (Manual) (20-40) % Atypical Lymphs % % Monocytes % (Manual) (2-10) % Eosinophils % (Manual) (0.8-7.0) % Basophils % (Manual) (0.2-1.2) Platelet Estimate Plt Morphology Comment RBC Morph Comment PT (9.5-12.1) SECONDS INR APTT (24-31) SECONDS Sodium 141 (136-145) mEq/L Potassium 3.2 L (3.5-5.1) mEq/L Chloride 105 (98-107) mEq/L Carbon Dioxide 25 (21-32) mEq/L Anion Gap 14.2 (5-15) BUN 18 (7-18) mg/dL Creatinine 1.3 (0.7-1.3) mg/dL Est Cr Clr Drug Dosing 56.93 Estimated GFR (MDRD) 55 (>60) mL/min BUN/Creatinine Ratio 13.8 L (14-18) Glucose 125 H (80-115) mg/dL Calcium 9.2 (8.5-10.1) mg/dL Magnesium 2.0 (1.8-2.4) mg/dl Total Bilirubin (0.2-1.0) mg/dL AST (15-37) U/L ALT (16-63) U/L Alkaline Phosphatase (46-116) U/L C-Reactive Protein < 0.2 (<1.0) mg/dL Total Protein (6.4-8.2) g/dl Albumin (3.4-5.0) g/dl Globulin gm/dL Albumin/Globulin Ratio (1-2) Triglycerides 128 (<150) mg/dL Cholesterol 187 (<200) mg/dL LDL Cholesterol Direct 127 H* (<100) mg/dL HDL Cholesterol 35.0 L (40-59) mg/dL Urine Color (Yellow) Urine Appearance (Clear) Urine pH (5.0-8.0) Ur Specific [place] (1.005-1.030) Urine Protein (Negative) Urine Glucose (UA) (Negative) Urine Ketones (Negative) Urine Occult Blood (Negative) Urine Nitrite (Negative) Urine Bilirubin (Negative) Urine Urobilinogen (0.2-1.0) Ur Leukocyte Esterase (Negative) Urine RBC (0-5) /hpf Urine WBC (0-5) /hpf Ur Epithelial Cells (0-5) /hpf Amorphous Sediment (NOT SEEN) /hpf Urine Bacteria (FEW) /hpf Urine Mucus (FEW) /hpf Ethyl Alcohol (0.00) gm% Med Orders - Current: Current Medications Acetaminophen (Tylenol) 650 mg PO Q6HR PRN PRN Reason: Pain Amlodipine Besylate (Norvasc) 10 mg PO DAILY [facility] Last Admin: 01/25/18 08:20 Dose: 10 mg Carvedilol (Coreg) 6.25 mg PO DAILY [facility] Last Admin: 01/25/18 08:20 Dose: 6.25 mg Hydralazine HCl (Apresoline) 20 mg IVPUSH Q6H PRN PRN Reason: Hypertension Last Admin: 01/25/18 11:23 Dose: 20 mg Potassium Chloride/Sodium Chloride (1/2 Ns With 20 Meq Kcl) 1,000 mls @ 125 mls /hr IV ASDIRECTED [facility] Last Admin: 01/25/18 10:46 Dose: 125 mls/hr Magnesium Oxide (Magnesium Oxide) 400 mg PO DAILY [facility] Last Admin: 01/25/18 08:20 Dose: 400 mg Meclizine HCl (Antivert) 25 mg PO Q6H PRN PRN Reason: Dryness Metoclopramide HCl (Reglan) 10 mg IVPUSH Q6H PRN PRN Reason: Nausea/Vomiting Last Admin: 01/25/18 11:58 Dose: 10 mg Miscellaneous Information (Remove Patch) 0 ea TRDERM ONETIME ONE Stop: 01/28/18 13:46 Ondansetron HCl (Zofran) 4 mg IVPUSH Q8H PRN PRN Reason: Nausea/Vomiting Last Admin: 01/25/18 13:36 Dose: 4 mg Potassium Chloride (Klor-Con M20) 40 meq PO BIDMEALS THOMAS Stop: 01/26/18 07:01 Last Admin: 01/25/18 08:19 Dose: 40 meq Sodium Chloride (Saline Flush) 30 ml FLUSH ONETIME PRN PRN Reason: Keep Vein Open Last Admin: 01/25/18 09:09 Dose: 30 ml Temazepam (Restoril) 15 mg PO BEDTIME PRN PRN Reason: Insomnia Terazosin HCl (Hytrin) 2 mg PO BEDTIME [facility] Discontinued Medications Diphenhydramine HCl (Benadryl) 25 mg IVPUSH ONETIME ONE Stop: 01/24/18 17:27 Last Admin: 01/24/18 17:34 Dose: 25 mg Gadobenate Dimeglumine (Multihance) 20 ml IVPUSH ONETIME ONE Stop: 01/25/18 08:49 Last Admin: 01/25/18 09:09 Dose: 20 ml Hydralazine HCl (Apresoline) 10 mg IVPUSH ONETIME ONE Stop: 01/24/18 16:16 Last Admin: 01/24/18 16:21 Dose: 10 mg Hydralazine HCl (Apresoline) 10 mg IVPUSH ONETIME ONE Stop: 01/24/18 17:26 Last Admin: 01/24/18 17:38 Dose: 10 mg Lactated Ringer's (Ringers, Lactated) 1,000 mls @ 150 mls/hr IV ASDIRECTED [facility] Last Admin: 01/24/18 17:16 Dose: 150 mls/hr Potassium Chloride 10 meq/ (Premix) 100 mls @ 100 mls/hr IV ONETIME ONE Stop: 01/24/18 18:26 Last Admin: 01/24/18 20:54 Dose: Not Given Lorazepam (Ativan) 1 mg IVPUSH ONETIME ONE Stop: 01/24/18 14:09 Last Admin: 01/24/18 14:17 Dose: 1 mg Meclizine HCl (Antivert) 25 mg PO ONETIME ONE Stop: 01/24/18 15:04 Last Admin: 01/24/18 15:18 Dose: 25 mg Metoclopramide HCl (Reglan) 10 mg IVPUSH ONETIME ONE Stop: 01/24/18 14:09 Last Admin: 01/24/18 14:16 Dose: 10 mg Non-Formulary Medication (Melatonin) 3 mg PO BEDTIME PRN PRN Reason: Insomnia Ondansetron HCl (Zofran) 4 mg IVPUSH ONETIME ONE Stop: 01/24/18 17:26 Last Admin: 01/24/18 17:33 Dose: 4 mg Potassium Chloride (Klor-Con M20) 40 meq PO ONETIME ONE Stop: 01/24/18 15:48 Last Admin: 01/24/18 15:58 Dose: 40 meq Scopolamine (Transderm-Scop) 1.5 mg TOP ONETIME ONE Stop: 01/25/18 13:40 Last Admin: 01/25/18 13:57 Dose: 1.5 mg Terazosin HCl (Hytrin) 2 mg PO BEDTIME [facility] Last Admin: 01/24/18 21:50 Dose: 2 mg - Exam Quality Assessment: DVT Prophylaxis. No: Supplemental Oxygen General: Alert, Oriented, Cooperative, Mild Distress HEENT: Pupils Equal, Pupils Reactive, EOMI, Mucous Membr. Moist/[place] Neck: Supple. No: Lymphadenopathy, Carotid Bruit Lungs: Clear to Auscultation, Normal Respiratory Effort Cardiovascular: Regular Rate, Regular Rhythm, No Murmurs GI/Abdominal Exam: Normal Bowel Sounds, Soft, Non-Tender, No Distention (Male) Exam: Deferred Back Exam: Normal Inspection, Full Range of Motion Extremities: Normal Inspection, Normal Range of Motion, Normal Capillary Refill Peripheral Pulses: 2+: Radial (L), Radial (R), Posterior Tibial (L), Posterior Tibial (R), Dorsalis Pedis (L), Dorsalis Pedis (R) Skin: Warm, Dry, Intact Neurological: No New Focal Deficit, Cranial Nerves Intact (grossly ) Psy/Mental Status: Alert, Normal Affect, Normal Mood - Problem List & Annotations (1) Renal insufficiency SNOMED Code(s): 039018318, 871083780 Code(s): N28.9 - DISORDER OF KIDNEY AND URETER, UNSPECIFIED Status: Acute Priority: Medium Current Visit: Yes (2) Vomiting SNOMED Code(s): 269926773 Code(s): R11.10 - VOMITING, UNSPECIFIED Status: Acute Priority: High Current Visit: Yes Qualifiers: Nausea presence: with nausea (3) Acute onset of severe vertigo SNOMED Code(s): 491689498 Code(s): R42 - DIZZINESS AND GIDDINESS Status: Acute Priority: High Current Visit: Yes (4) Uncontrolled hypertension SNOMED Code(s): 58584169, 83587951 Code(s): I10 - ESSENTIAL (PRIMARY) HYPERTENSION Status: Acute Priority: High Current Visit: Yes (5) Dyslipidemia (high LDL; low HDL) SNOMED Code(s): 249863401, 083714879 Code(s): E78.5 - HYPERLIPIDEMIA, UNSPECIFIED Status: Acute Priority: Medium Current Visit: Yes - Problem List Review Problem List Initiated/Reviewed/Updated: Yes - Plan Plan:: Impression: Acute dizziness -vestibular assessment ordered and was negative and therefore not likely BPPV -MRA ordered --> tortuous ICA b/l but otherwise unremarkable -S/P right sided craniotomy; previous left frontal infarct --> CT in ED did not show any acute changes -has been experiencing N/V today; received Reglan, Zofran, and scopalamine patch -Rx for meclizine at D/C Hypertension, uncontrolled -has received hydralazine several times since admit and believes this is making him nauseous --> retrieved medical records from last visit with Dr. 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
[2018-01-25] MEDS: Labetalol 100 MG Tab PO SCH (20:55)
[2018-01-25] MEDS ORDERED: Simvastatin 10 MG Tab PO SCH (21:00)
[2018-01-25] MEDS ORDERED: Terazosin 1 MG Cap PO SCH (21:00)
[2018-01-26] MEDS: Sodium Chloride 0.45% with KCl 1,000 ML IV SCH (03:00)
[2018-01-26] MEDS: Potassium Chloride 20 MEQ Tab.ER PO SCH (07:19)
[2018-01-26] MEDS: Magnesium Oxide 400 MG Tab PO SCH (08:50)
[2018-01-26] MEDS: Labetalol 100 MG Tab PO SCH (08:50)
[2018-01-26] MEDS: amLODIPine 10 MG Tab PO SCH (08:50)
[2018-01-26] MEDS: Carvedilol 6.25 MG Tab PO SCH (08:51)
--- NOTE | 2018-01-26 11:55 | PCM.DCSUM1 ---
Discharge Summary - Hospital Course HPI Initial Comments: 67-year-old male presents the ED with sudden onset of severe vertigo associated with nausea and vomiting within the last hour. He was in [place] grocery shopping with his when symptoms developed. He had a headache this morning when he woke up he states is more like a mild tension headache. He did go out and mow the grass. States took 2 Tylenol this morning for the headache relief and it seemed to help. He has chronic tinnitus particular in his left ear. Can' t report that is any worse than normal. He is losing his hearing in his left ear. Presents the ED after vomiting 3 both breakfast and dinner came back up without blood. This is associated with severe vertigo. At this time is no worse than it was this morning. He appreciated some neck stiffness this morning when he awoke. He has a history of previous spontaneous subdural hematoma. Currently on no blood thinners. He said mild vertigo in the past but never to this severity. He does have chronic hypertension. - Discharge Data Discharge Date: 01/26/18 Discharge Disposition: Home, Self-Care 01 Condition: Good - Discharge Diagnosis/Problem(s) (1) Renal insufficiency SNOMED Code(s): 993495606, 018802726 ICD Code: N28.9 - DISORDER OF KIDNEY AND URETER, UNSPECIFIED Status: Resolved Priority: Medium Current Visit: Yes (2) Vomiting SNOMED Code(s): 784222262 ICD Code: R11.10 - VOMITING, UNSPECIFIED Status: Resolved Priority: High Current Visit: Yes Qualifiers: Nausea presence: with nausea (3) Acute onset of severe vertigo SNOMED Code(s): 037807255 ICD Code: R42 - DIZZINESS AND GIDDINESS Status: Resolved Priority: High Current Visit: Yes (4) Uncontrolled hypertension SNOMED Code(s): 71437293, 17816086 ICD Code: I10 - ESSENTIAL (PRIMARY) HYPERTENSION Status: Chronic Priority : High Current Visit: Yes (5) Dyslipidemia (high LDL; low HDL) SNOMED Code(s): 137168294, 778119421 ICD Code: E78.5 - HYPERLIPIDEMIA, UNSPECIFIED Status: Acute Priority: Medium Current Visit: Yes (6) Noncompliance with medication regimen SNOMED Code(s): 943914543 ICD Code: Z91.14 - PATIENT'S OTHER NONCOMPLIANCE WITH MEDICATION REGIMEN Status: Acute Priority: High Current Visit: Yes - Patient Summary/Data Operative Procedure(s) Performed: None Complications: None Consults: Consultations 01/25/18 09:00 Consult to Occupational Therapy [OT Evaluation and Treatment] [CONS] Routine Consult to Physical Therapy [PT Evaluation and Treatment] [CONS] Routine 01/25/18 15:00 Consult to Dietary [Consult to Supervising Chef] [CONS] Routine Labs Pending at D/C: None Recommended Follow-up Testing/Procedures: Follow-up with PCP at discharge Schedule sleep study as soon as possible Planned Operative Procedure(s) after DC: None Hospital Course: Impression: Acute dizziness -vestibular assessment ordered and was negative and therefore not likely BPPV -MRA ordered --> tortuous ICA b/l but otherwise unremarkable -S/P right sided craniotomy; previous left frontal infarct --> CT in ED did not show any acute changes -Rx for meclizine at D/C Hypertension, uncontrolled -has received hydralazine several times since admit and believes this is making him nauseous --> retrieved medical records from last visit with Dr. Rowley which showed that patient was prescribed hydralazine 25 mg QID; patient had no recollection of this medication being previously prescribed and was not present to confirm or deny this history -BP stable at d/c -will order labetalol 100 mg BID for BP --> D/c'd -terazosin 20 mg at bedtime -resume home meds at originally prescribed dosage Hypokalemia -3.6 today; previously 3.0, 3.2 --> received 1/2 NS w/20 mEq K at 125 ml/hr and po potassium -monitor Dyslipidemia -LDL 127, HDL 35 -will order low dose statin (Zocor) and CoQ-10 -heart healthy diet -RD consult Fatigue -likely related to YOEL (STOP BANG questionnaire score was high risk for YOEL) --> recommended OP sleep study -checked TSH and free T4 and were 1.113 and 0.89 respectively Resolved: Acute renal failure w/ CKD, stage III -Cr 1.2 --> 1.3 -lisinopril to be resumed at D/C Chronic: BPH Hx of Subdural Hematoma, s/p [place] hole Hx of left sided hearing loss Plan: Neurochecks with [facility] ordered IVF for dehydration MRA of head/neck Check Lipids Routine morning labs Resume home meds, hold diuretic; add pm alpha ulices DVT/GI prophylaxis Consult PT/OT/(CM) --> Stable for discharge PCP: Previously Dr. Rowley; appointment made with Dr. Robby Chowdhury for 02/02/18 DC expected 01/26/18 to home with in stable and improved condition. Hospital course: He has recovered quite well after being admitted for dizziness. Work-up performed included head CT in ED which was read as no acute changes from last head CT, MRA which was read as b/l tortuous ICA and otherwise unremarkable, vestibular assessment which was normal, and routine labs. Labs indicated NELSON which has now resolved. Lisinopril was held during NELSON but will be resumed at d/ c. Labs also revealed hypokalemia and he received repletion during his stay with a potassium of 3.6 at discharge. He did experience some N/V but this resolved with antiemetics. Patient reports that he was cutting his current blood pressure medications in half for approximately 1 year. His blood pressure was above goal during stay and hydralazine and labetalol were ordered. His BP did normalize prior to discharge. It was recommended that patient continue his medications at the dosages that were prescribed: amlodipine 10 mg daily, carvedilol 6.25 mg daily, and lisinopril 40 mg daily. He was also encouraged to check his BP 3-4 times per day and to bring his BP log to his visit with PCP. Patient also endorsed fatigue during his stay. With patient's persistent HTN and reported fatigue, recommendation was made for patient to have a sleep study. His STOP BANG score indicated high risk for YOEL. Consult to dietitian was placed for heart healthy and weight loss diet. New medications at discharge include terazosin 2 mg daily at bedtime, zocor 10 mg daily at bedtime, and meclizine 25 mg q 6 hr prn nausea. and patient agreeable to discharge plan and to have patient discharged today. - Patient Instructions Diet: Heart Healthy Diet, Weight Loss Diet Activity: As Tolerated Driving: Do Not Drive Showering/Bathing: May Shower Notify Provider of: Fever, Increased Pain, Nausea and/or Vomiting Other/Special Instructions: - Please take new medication as directed. - Resume routine home medications. - DO NOT make changes on your medications unless otherwise directed by your PCP. - Check your vitals (BP and HR) 3x/day. Show log on your follow up appointment with your PCP. - Recommend Sleep Study outpatient. - Recommend Life Style Modications: Exercise Reguarly, Eat Properly and Lose Weight. - Call your family doctor for any questions or concerns after discharge. - Follow up with PCP in 1-2 week. - Come back or seek immediate care should your symptom persists or gets worse - Discharge Plan Prescriptions/Med Rec: Meclizine [Antivert] 25 mg PO Q6H PRN 7 Days tab.chew PRN Reason: Other Simvastatin [Zocor] 10 mg PO BEDTIME 7 Days #7 tablet Terazosin [Hytrin] 2 mg PO BEDTIME 7 Days #7 cap Home Medications: Home Meds Carvedilol 6.25 mg PO DAILY 11/23/17 [History] Lisinopril 40 mg PO DAILY 11/23/17 [History] amLODIPine Besylate [Amlodipine Besylate] 10 mg PO DAILY 11/23/17 [History] Cholecalciferol (Vitamin D3) [Vitamin D3] 1,000 unit PO DAILY 01/24/18 [History] Magnesium 250 mg PO DAILY 01/24/18 [History] Melatonin 3 mg PO BEDTIME PRN 01/24/18 [History] Multivit-Min/FA/Lycopene/Lut [Centrum Silver Tablet] 1 tab PO DAILY 01/24/18 [ History] Meclizine [Antivert] 25 mg PO Q6H PRN 7 Days tab.chew 01/26/18 [Rx] Simvastatin [Zocor] 10 mg PO BEDTIME 7 Days #7 tablet 01/26/18 [Rx] Terazosin [Hytrin] 2 mg PO BEDTIME 7 Days #7 cap 01/26/18 [Rx] Patient Handouts: Sleep Apnea, [id number], Hypertension, Xlzq-ob-[id number], Dyslipidemia, Fat and Cholesterol Restricted Diet, [id number] Referrals: Robby Chowdhury Jr, MD [Ordering Only Provider] - 02/02/18 2:30 pm (Please follow up with Dr. Chowdhury on Thursday, February 02 at 1430.) - Discharge Summary/Plan Comment DC Time >30 min.: Yes (40) - General Info Date of Service: 01/26/18 Admission Dx/Problem (Free Text: Admission Diagnosis/Problem Admission Diagnosis/Problem Vertigo Subjective Update: In to see Miguel A. He is feeling very good overall. His nausea has improved and he has not had any vomiting since yesterday. His dizziness has resolved. He has no pain. He is ready for discharge today. Denies chest pain, shortness of breath. Functional Status: Reports: Pain Controlled, Tolerating Diet, Ambulating, Urinating - Review of Systems General: Reports: No Symptoms, Fatigue. Denies: Fever, Weakness HEENT: Reports: No Symptoms Pulmonary: Reports: No Symptoms. Denies: Shortness of Breath, Cough Cardiovascular: Reports: No Symptoms. Denies: Chest Pain, Palpitations Gastrointestinal: Reports: No Symptoms. Denies: Abdominal Pain, Constipation, Diarrhea, Nausea, Vomiting Genitourinary: Reports: No Symptoms. Denies: Dysuria, Frequency Musculoskeletal: Reports: No Symptoms Skin: Reports: No Symptoms Neurological: Reports: No Symptoms. Denies: Confusion, Dizziness, Headache Psychiatric: Reports: No Symptoms. Denies: Confusion, Depression - Patient Data Vitals - Most Recent: Last Vital Signs Temp 98.6 F 01/26/18 08:06 Pulse 68 01/26/18 08:50 Resp 18 01/26/18 08:06 BP 125/85 01/26/18 08:50 Pulse Ox 95 01/26/18 08:06 Weight - Most Recent: 292 lb 12.8 oz I&O - Last 24 hours: Intake & Output 01/25/18 01/26/18 01/26/18 22:59 06:59 14:59 Intake Total 1790 2568 Output Total 1150 1175 Balance 640 1393 Lab Results - Last 24 hrs: Laboratory Results - last 24 hr 01/26/18 01/26/18 01/26/18 Range/Units 05:44 05:44 05:44 WBC 8.62 (4.23-9.07) K/mm3 RBC 5.15 (4.63-6.08) M/mm3 Hgb 15.3 (13.7-17.5) gm/L Hct 45.4 (40.1-51.0) % MCV 88.2 (79.0-92.2) fl MCH 29.7 (25.7-32.2) pg MCHC 33.7 (32.2-35.5) g/dl RDW Std Deviation 44.3 H (35.1-43.9) fL Plt Count 227 (163-337) K/mm3 MPV 9.1 L (9.4-12.3) fl Neut % (Auto) 72.2 H (34.0-67.9) % Lymph % (Auto) 13.5 L (21.8-53.1) % [place] % (Auto) 12.8 H (5.3-12.2) % Eos % (Auto) 1.2 (0.8-7.0) Baso % (Auto) 0.2 (0.1-1.2) % Neut # (Auto) 6.23 H (1.78-5.38) K/mm3 Lymph # (Auto) 1.16 L (1.32-3.57) K/mm3 [place] # (Auto) 1.10 H (0.30-0.82) K/mm3 Eos # (Auto) 0.10 (0.04-0.54) K/mm3 Baso # (Auto) 0.02 (0.01-0.08) K/mm3 Sodium 136 (136-145) mEq/L Potassium 3.6 (3.5-5.1) mEq/L Chloride 103 (98-107) mEq/L Carbon Dioxide 22 (21-32) mEq/L Anion Gap 14.6 (5-15) BUN 14 (7-18) mg/dL Creatinine 1.2 (0.7-1.3) mg/dL Est Cr Clr Drug Dosing 61.68 mL/min Estimated GFR (MDRD) > 60 (>60) mL/min BUN/Creatinine Ratio 11.7 L (14-18) Glucose 120 H (80-115) mg/dL Calcium 9.3 (8.5-10.1) mg/dL Magnesium 2.2 (1.8-2.4) mg/dl Free T4 0.89 (0.76-1.46) ng/dL TSH 3rd Generation 1.113 (0.358-3.74) uIU/mL Med Orders - Current: Current Medications Acetaminophen (Tylenol) 650 mg PO Q6HR PRN PRN Reason: Pain Amlodipine Besylate (Norvasc) 10 mg PO DAILY [facility] Last Admin: 01/26/18 08:50 Dose: 10 mg Carvedilol (Coreg) 6.25 mg PO DAILY [facility] Last Admin: 01/26/18 08:51 Dose: 6.25 mg Hydralazine HCl (Apresoline) 20 mg IVPUSH Q6H PRN PRN Reason: Hypertension Last Admin: 01/25/18 11:23 Dose: 20 mg Labetalol HCl (Normodyne) 100 mg PO BID [facility] Last Admin: 01/26/18 08:50 Dose: 100 mg Magnesium Oxide (Magnesium Oxide) 400 mg PO DAILY [facility] Last Admin: 01/26/18 08:50 Dose: 400 mg Meclizine HCl (Antivert) 25 mg PO Q6H PRN PRN Reason: Dryness Metoclopramide HCl (Reglan) 10 mg IVPUSH Q6H PRN PRN Reason: Nausea/Vomiting Last Admin: 01/25/18 11:58 Dose: 10 mg Miscellaneous Information (Remove Patch) 0 ea TRDERM ONETIME ONE Stop: 01/28/18 13:46 Ondansetron HCl (Zofran) 4 mg IVPUSH Q8H PRN PRN Reason: Nausea/Vomiting Last Admin: 01/25/18 13:36 Dose: 4 mg Simvastatin (Zocor) 10 mg PO BEDTIME [facility] Last Admin: 01/25/18 20:55 Dose: 10 mg Sodium Chloride (Saline Flush) 30 ml FLUSH ONETIME PRN PRN Reason: Keep Vein Open Last Admin: 01/25/18 09:09 Dose: 30 ml Temazepam (Restoril) 15 mg PO BEDTIME PRN PRN Reason: Insomnia Terazosin HCl (Hytrin) 2 mg PO BEDTIME [facility] Last Admin: 01/25/18 20:55 Dose: 2 mg Discontinued Medications Diphenhydramine HCl (Benadryl) 25 mg IVPUSH ONETIME ONE Stop: 01/24/18 17:27 Last Admin: 01/24/18 17:34 Dose: 25 mg Gadobenate Dimeglumine (Multihance) 20 ml IVPUSH ONETIME ONE Stop: 01/25/18 08:49 Last Admin: 01/25/18 09:09 Dose: 20 ml Hydralazine HCl (Apresoline) 10 mg IVPUSH ONETIME ONE Stop: 01/24/18 16:16 Last Admin: 01/24/18 16:21 Dose: 10 mg Hydralazine HCl (Apresoline) 10 mg IVPUSH ONETIME ONE Stop: 01/24/18 17:26 Last Admin: 01/24/18 17:38 Dose: 10 mg Lactated Ringer's (Ringers, Lactated) 1,000 mls @ 150 mls/hr IV ASDIRECTED [facility] Last Admin: 01/24/18 17:16 Dose: 150 mls/hr Potassium Chloride 10 meq/ (Premix) 100 mls @ 100 mls/hr IV ONETIME ONE Stop: 01/24/18 18:26 Last Admin: 01/24/18 20:54 Dose: Not Given Potassium Chloride/Sodium Chloride (1/2 Ns With 20 Meq Kcl) 1,000 mls @ 125 mls /hr IV ASDIRECTED [facility] Stop: 01/26/18 05:00 Last Admin: 01/26/18 03:00 Dose: 125 mls/hr Lorazepam (Ativan) 1 mg IVPUSH ONETIME ONE Stop: 01/24/18 14:09 Last Admin: 01/24/18 14:17 Dose: 1 mg Meclizine HCl (Antivert) 25 mg PO ONETIME ONE Stop: 01/24/18 15:04 Last Admin: 01/24/18 15:18 Dose: 25 mg Metoclopramide HCl (Reglan) 10 mg IVPUSH ONETIME ONE Stop: 01/24/18 14:09 Last Admin: 01/24/18 14:16 Dose: 10 mg Non-Formulary Medication (Melatonin) 3 mg PO BEDTIME PRN PRN Reason: Insomnia Ondansetron HCl (Zofran) 4 mg IVPUSH ONETIME ONE Stop: 01/24/18 17:26 Last Admin: 01/24/18 17:33 Dose: 4 mg Potassium Chloride (Klor-Con M20) 40 meq PO ONETIME ONE Stop: 01/24/18 15:48 Last Admin: 01/24/18 15:58 Dose: 40 meq Potassium Chloride (Klor-Con M20) 40 meq PO BIDMEALS [facility] Stop: 01/26/18 07:01 Last Admin: 01/26/18 07:19 Dose: 40 meq Scopolamine (Transderm-Scop) 1.5 mg TOP ONETIME ONE Stop: 01/25/18 13:40 Last Admin: 01/25/18 13:57 Dose: 1.5 mg Terazosin HCl (Hytrin) 2 mg PO BEDTIME [facility] Last Admin: 01/24/18 21:50 Dose: 2 mg - Exam Quality Assessment: Reports: DVT Prophylaxis General: Reports: Alert, Oriented, Cooperative, No Acute Distress HEENT: Reports: Pupils Equal, Pupils Reactive, EOMI, Mucous Membr. Moist/[place] Neck: Reports: Supple. Denies: Lymphadenopathy Lungs: Denies: Clear to Auscultation, Normal Respiratory Effort Cardiovascular: Reports: Regular Rate, Regular Rhythm GI/Abdominal Exam: Normal Bowel Sounds, Soft (obese ), Non-Tender, No Distention (Male) Exam: Deferred Rectal (Males) Exam: Deferred Back Exam: Reports: Normal Inspection, Full Range of Motion Extremities: Normal Inspection, Normal Range of Motion Skin: Reports: Warm, Dry, Intact Neurological: Reports: No New Focal Deficit, Normal Gait, Normal Speech Psy/Mental Status: Reports: Alert, Normal Affect, Normal Mood
== END 2018-01-26 12:20 | disposition home or self-care (01) | DRG 469 ==
LOC: JD.ED 13:54 → UNDOADMIN 16:59 → JD.MS 16:59
PROVIDERS: ADMIT Internal Medicine Cardiovascular Disease; ATTEND Internal Medicine Cardiovascular Disease
DX: N17.9 Acute kidney failure, unspecified (principal); E86.0 Dehydration; E87.6 Hypokalemia; H91.92 Unspecified hearing loss, left ear; I12.9 Hypertensive chronic kidney disease with stage 1 through stage 4 chronic kidney disease, or unspecified chronic kidney disease; N18.3 Chronic kidney disease, stage 3 (moderate); K21.9 Gastro-esophageal reflux disease without esophagitis; N40.0 Benign prostatic hyperplasia without lower urinary tract symptoms; I77.1 Stricture of artery; H93.12 Tinnitus, left ear; R42 Dizziness and giddiness; Z79.899 Other long term (current) drug therapy; Z86.73 Personal history of transient ischemic attack (TIA), and cerebral infarction without residual deficits; Z98.890 Other specified postprocedural states
CPT/HCPCS: 36415; 70450; 70450-26; 70549; 70549-26; 71045; 71045-26; 80048; 80053; 80061; 81001; 83735; 84439; 84443; 85007; 85025; 85027; 85610; 85730; 86140; 93005; 93010; 96374; 96375; 96376; 97116-GP; 97161-GP; 97165-GO; 99285-25; A9270-GY; A9577; G0480; J0360; J1200; J2060; J2405; J2765; J3480; J7050; J7120